=== PATIENT | male | born 1955 | race Caucasian/White ===

== ENCOUNTER 2019-08-14 12:42 | Emergency (ER) | payer SELFPAY ==
[2019-08-14 12:45] VITALS: BP 161/76; PULSE 88; RESP 17; TEMP 36.8; O2SAT 97; BMI 33.5
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
[2019-08-14] MEDS: HYDROcodone-acetaminophen 5-325 mg Tablet 1 TAB PO (13:06)
[2019-08-14 13:20] LABS: Basophils % 0.5 %; Eosinophils # 0.2 10^3/uL (0.0-0.8); Eosinophils % 3.9 %; Hematocrit 47.8 % (42.0-52.0); Hemoglobin 15.6 g/dL (11.7-16.6); Lymphocytes % 36.1 %; Mean Corpuscular HGB Conc 32.6 g/dL (30.0-36.0); Mean Corpuscular Hemoglobin 31.1 pg (28.0-34.0); Mean Corpuscular Volume 95.2 fL (80-94); Mean Platelet Volume 9.8 fL (7.4-10.4); Monocytes # 0.4 10^3/uL (0.2-0.9); Monocytes % 6.7 %; Neutrophils % 52.4 %; Nucleated Red Blood Cells % 0 %; Platelet Count 254 10^3/cmm (130-400); Red Blood Count 5.02 10^6/uL (4.1-5.3); Red Cell Distribution Width 13.1 % (12.1-15.1); White Blood Count 5.7 10^3/uL (4.0-10.0)
[2019-08-14 13:41] LABS: Blood Urea Nitrogen 15 mg/dL (8-23); Calcium 9.6 mg/dL (8.5-10.5); Carbon Dioxide 23 mmol/L (22-29); Chloride 102 mmol/L (98-107); Glucose 183 mg/dL (65-115); Osmolality Calculated 285 mOsm/kg (285-295); Sodium 137 mmol/L (136-145)
[2019-08-14 15:38] VITALS: BP 184/83; PULSE 73; RESP 17; O2SAT 95
== END 2019-08-14 15:38 | disposition home or self-care (01) ==
PROVIDERS: Emergency Provider Family Medicine; Family Provider Family Medicine; PCP Family Medicine
DX: S13.4XXA Sprain of ligaments of cervical spine, initial encounter (principal); M50.020 Cervical disc disorder with myelopathy, mid-cervical region, unspecified level; V43.53XA Car driver injured in collision with pick-up truck in traffic accident, initial encounter; F17.200 Nicotine dependence, unspecified, uncomplicated; Z98.1 Arthrodesis status; Z79.82 Long term (current) use of aspirin
CPT/HCPCS: 12345; 36415; 72125; 80048; 85025; 99281; 99283

== ENCOUNTER 2019-08-26 15:40 | Emergency (ER) | payer OTHER, SELFPAY ==
[2019-08-26 15:45] VITALS: BP 165/98; PULSE 69; RESP 18; TEMP 37.3; O2SAT 99; BMI 34.8
[2019-08-26 16:40] VITALS: BP 157/94
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
[2019-08-26 17:18] VITALS: PULSE 73; RESP 18; O2SAT 95
[2019-08-26] MEDS: ketorolac 30 mg/mL INJ IVP (18:10)
[2019-08-26] MEDS: orphenadrine 30 mg/mL Inj 2 mL 60 MG IM (18:10)
[2019-08-26 18:13] VITALS: BP 179/87; PULSE 66; RESP 20; O2SAT 94
== END 2019-08-26 18:19 | disposition home or self-care (01) ==
PROVIDERS: Emergency Provider Family Medicine; Family Provider Family Medicine; PCP Family Medicine
DX: S39.012A Strain of muscle, fascia and tendon of lower back, initial encounter (principal); Z79.82 Long term (current) use of aspirin; V89.2XXA Person injured in unspecified motor-vehicle accident, traffic, initial encounter; F17.210 Nicotine dependence, cigarettes, uncomplicated
CPT/HCPCS: 12345; 72100; 96372; 99281; 99283; J1885; J2360

== ENCOUNTER 2019-09-25 07:59 | Outpatient (CLI) | payer SELFPAY ==
--- NOTE | 2019-09-25 08:00 | MR_ITS ---
WS: [id number] MRI CERVICAL SPINE NONCONTRAST TECHNIQUE: Sagittal T1, T2 and STIR imaging. Axial T2, gradient, and fiesta imaging. CLINICAL INFORMATION: cervical pain COMPARISON: MRI September 04 2018 FINDINGS: Straightening of the normal cervical lordosis. No high-grade central canal stenosis. Cord signal is n ormal. Anterior cervical fusion C3-C7 with interbody fusion C3-C4 C5-C6 and C6-C7. C2-C3: Normal. C3-C4: Postoperative changes anterior interbody cervical fusion. Mild right and no significant left f oraminal narrowing. Mild facet arthropathy. Spinal canal is patent. C4-C5: Anterior cervical fusion. Moderate facet arthropathy. Mild bilateral bony foraminal narrowing. C5-C6: Anterior interbody cervical fusion. Osteophytic ridging. Mild left and no significant right fo raminal narrowing. Spinal canal is patent. Mild facet arthropathy. C6-C7: Anterior interbody cervical fusion. Spinal canal is patent. Mild left greater than right bianca inal narrowing. C7-T1: Anterior cervical fusion. No significant disc bulging. Mild bilateral bony foraminal narrowing . Spinal canal is patent. Retention cyst in the posterior nasopharynx. MR/MR cervical spin wo con* [id number] IMPRESSION: 1. Straightening of the normal cervical lordosis with anterior cervical fusion C3-C7 with interbody fusion C3-C4 C5-C6 and C6-C7. Hardware appears unchanged since 2019. 2. No high-grade central canal stenosis. Cord signal is normal. 3. Mild central canal stenosis C4-C5 unchanged. 4. Mild bony foraminal narrowing described above worse at right C3-4, bilatera l C4-5, and left C5-6. 5. Asymmetric moderate left facet arthropathy C4-C5 unchanged.
--- NOTE | 2019-09-25 08:45 | MR_ITS ---
WS: [id number] MRI LUMBAR SPINE NONCONTRAST TECHNIQUE: Sagittal T1, T2 and STIR imaging. Axial T1 and T2 imaging. CLINICAL INFORMATION: COMPARISON: None. FINDINGS: Mild lumbar curve. No acute compression. No high-grade central canal stenosis. Mild congenital centra l canal narrowing. L1-L2: Small right foraminal protrusion with a tiny annular fissure. Mild right foraminal narrowing w ith contact of the exiting right L1 nerve root. Left foramen is patent. Mild facet arthropathy. L2-L3: Annular bulging with mild/moderate central canal stenosis. Impingement on the traversing left L3 nerve root. Small left foraminal protrusion with mild left and no significant right foraminal narr owing. Moderate facet arthropathy. L3-L4: Mild annular bulging. Small right greater than left foraminal protrusions with mild right grea ter than left foraminal narrowing. Contact of the exiting right L3 nerve root. Mild facet arthropathy . Mild central canal stenosis. L4-L5: Mild annular bulging with narrowing of the subarticular recess bilaterally. Right foraminal pr otrusion contacts the exiting right L4 nerve root with moderate right foraminal narrowing. Mild left foraminal narrowing. Moderate facet arthropathy. L5-S1: Disc osteophyte complex eccentric to the right with encroachment traversing right S1 nerve regina t. Mild right foraminal narrowing. Moderate facet arthropathy. Spinal canal is patent. Right peripelvic renal cysts. Infrarenal abdominal aortic aneurysm measuring 3.0 x 3.0 cm MR/MR lumbar spine wo con* [id number] IMPRESSION: 1. Left pericentral protrusion L2-3 impinges the traversing left L3 nerve root . Mild to moderate central canal stenosis. Small left foraminal protrusion at t his level contacts the exiting left L2 nerve root. 2. Right foraminal protrusion L3-4 contacts the exiting right L3 nerve root w ith mild right foraminal narrowing. 3. Right foraminal protrusion L4-5 slightly impinges the exiting right L4 nerv e root. 4. Moderate facet arthropathy L3-L5. 5. Mild central canal stenosis L3-L4 and L4-L5 with impingement on the subarti cular recess L4-5. 6. Small infrarenal abdominal aortic aneurysm measuring 3.0 x 3.0 CM.
--- NOTE | 2019-09-25 11:42 | XR_ITS ---
WS: [id number] LATERAL LUMBAR SPINE: 3 view. Lateral radiographs are performed in upright neutral, flexion and extension to the patient's toleranc e. HISTORY: lumbar pain COMPARISON: 08/26/2019 L1, L2 and L3 retrolisthesis by 2 mm. With flexion and extension no significant instability. Endplate osteophytes at all levels. No fractures. Facet joint arthritis at L4-5 and L5-S1. XR/XR lumbar spine f/e only [id number] IMPRESSION: No lumbar spine instability.
--- NOTE | 2019-09-25 11:42 | XR_ITS ---
WS: [id number] LATERAL CERVICAL SPINE: 3 view. Lateral radiographs are performed in upright neutral, flexion and extension to the patient's toleranc e. HISTORY: cervical pain COMPARISON: 10/24/2018 Anterior cervical fusion at C3-4 with interbody spacer ankylosis. Anterior cervical fusion extends from C5 through C7 with interbody spacers at C5-6 and C6-7 with comp lete ankylosis. Posterior alignment is normal. No significant instability during flexion or extension. No change in p osition of the hardware. XR/XR cervical spine fl/ex [id number] IMPRESSION: Anterior cervical fusions with ankylosis across the disc spaces as above. No instability.
== END 2019-09-25 08:00 | disposition home or self-care (01) ==
LOC: RADSHAW 08:06
PROVIDERS: PCP Family Medicine; Visit Provider Specialist
DX: M51.26 Other intervertebral disc displacement, lumbar region (principal); M48.061 Spinal stenosis, lumbar region without neurogenic claudication; M47.816 Spondylosis without myelopathy or radiculopathy, lumbar region; I71.4 Abdominal aortic aneurysm, without rupture; M47.812 Spondylosis without myelopathy or radiculopathy, cervical region; M48.02 Spinal stenosis, cervical region
CPT/HCPCS: 72040; 72120; 72141; 72148

== ENCOUNTER → 2020-02-28 12:53 | Outpatient (BNVA) | payer OTHER, SELFPAY | PROVIDERS: PCP Family Medicine; Visit Provider Family Medicine | DX: Z11.59 Encounter for screening for other viral diseases (principal) | CPT/HCPCS: 87635 ==

== ENCOUNTER 2021-04-16 12:28 | Emergency (ER) | payer OTHER, MEDICARE, SELFPAY ==
[2021-04-16 13:24] VITALS: BP 130/79; PULSE 47; RESP 16; TEMP 36.5; O2SAT 95; BMI 34.8
--- NOTE | 2021-04-16 13:34 | ECG_ITS ---
[facility] Test Date: 2021-04-16 Pat Name: Shon Narayanan Department: Room: Gender: Male Fowl Blood Tester: : 1955 Requested By: Jose Carlos Clarke Order Number: [id number] Cassidy MD: Rah Carr M.D. Measurements Intervals [place] Rate: 47 P: -8 [place]: 366 QRS: 79 QRSD: 81 T: 66 QT: 447 QTc: 397 Interpretive Statements SINUS BRADYACARDIA INTERPRETATION BASED ON A DEFAULT AGE OF 40 YEARS Compared to ECG 11/11/2016 13:33:47 Sinus rhythm no longer present Ventricular premature complex(es) no longer present Electronically Signed On 04-17-2021 7:37:10 HEAD OF ART by Rah Carr M.D. [id number]
[2021-04-16 14:09] LABS: Basophils # 0.1 10^3/uL (0.0-0.1); Basophils % 0.6 %; Eosinophils # 0.3 10^3/uL (0.0-0.8); Eosinophils % 3.3 %; Hematocrit 50.9 % (42.0-52.0); Hemoglobin 16.3 g/dL (11.7-16.6); Lymphocytes # 3.3 10^3/uL (0.8-4.8); Lymphocytes % 39.4 %; Mean Corpuscular Hemoglobin 31.6 pg (28.0-34.0); Mean Corpuscular Volume 98.6 fl (80-94); Mean Platelet Volume 10.4 fL (7.4-10.4); Monocytes # 0.7 10^3/uL (0.2-0.9); Monocytes % 8.1 %; Neutrophils # 4.06 10^3/uL (1.8-7.7); Neutrophils % 48.4 %; Nucleated Red Blood Cells % 0 %; Platelet Count 213 10^3/cmm (130-400); Red Blood Count 5.16 10^6/uL (4.1-5.3); Red Cell Distribution Width 13.6 % (12.1-15.1); White Blood Count 8.4 10^3/uL (4.0-10.0)
[2021-04-16 14:30] LABS: Alanine Aminotransferase 36 U/L (0-41); Albumin Level 4.4 g/dL (3.5-5.2); Alkaline Phosphatase 62 IU/L (40-130); Anion Gap 15.6 (5-19); Aspartate Amino Transferase 31 U/L (0-40); Blood Urea Nitrogen 12 mg/dL (8-23); Calcium 8.4 mg/dL (8.5-10.5); Carbon Dioxide 23 mmol/L (22-29); Chloride 108 mmol/L (98-107); Globulin 2.9 g/dL (1.3-4.6); Glomerular Filtration Rate 96.7 mL/min (90-130); Glucose 79 mg/dL (65-115); Osmolality Calculated 293 mOsm/kg (285-295); Potassium 4.6 mmol/L (3.5-5.1); Sodium 142 mmol/L (136-145); Total Bilirubin 0.3 mg/dL (0.15-1.2); Total Protein 7.3 g/dL (6.6-8.7)
--- NOTE | 2021-04-16 15:58 | ED_ITS ---
HPI - Extremity Problem General: Chief complaint: Extremity Problem,Nontraumatic Stated complaint: POSS BLOOD CLOT RIGHT CALF Time Seen by Provider: 04/16/21 15:58 History of Present Illness: HPI Narrative: Mr Narayanan is a 66-year-old gentleman with significant past medical hypertension leg pain and also your symptoms the patient reports approximately 3 weeks ago noticing nontraumatic onset of right lower extremity discomfort. This discomfort is worse with palpation and movement but does not go with rest. He denies any injury or known similar episodes. Quality aching, intensity moderate. Course has persisted. Additionally, he has some lightheadedness and worsening shortness of breath after a change medications including increasing is he hypotensive. Lightheadedness is worse with position changes. No other changes, no other exacerbating or relieving factors identified Review of Systems General: Reports: 10 or more systems reviewed and unremarkable except in HPI and below PFSH ED PFSH: Medical History AMS (altered mental status) Carpal tunnel syndrome, bilateral Cervical disc disorder with myelopathy of mid-cervical region Current smoker Displacement of lumbar disc with radiculopathy Neck pain Surgical History H/O arthroscopy of shoulder H/O carpal tunnel repair (03/21/19) Open release of median nerve at right wrist; 03/21/2019; [facility] [place] History of cholecystectomy S/P cervical spinal fusion (09/22/16) C3-C4, C5-C6, C6-C7 ACDFF; 09/22/2016; [facility] [place] Family History Grandmother CAD (coronary artery disease) Hypertension Sister Cancer Hypertension Brother Hypertension Mother Hypertension Father Hypertension Denies family history of Diabetes Bleeding disorder Social History Smoking and tobacco status: current every day smoker Alcohol intake: former Lives independently: Yes Marital status: Current occupational status: disabled History of recent travel: No Physical Exam Narrative: EXAM NARRATIVE: GENERAL/CONSTITUTIONAL - well-appearing. No acute distress. Eyes - PERRL, no conjunctival injection ENMT - Atraumatic external nose and ears. Moist mucous membranes NECK - supple. trachea midline CARDIOVASCULAR - bradycardic rate and regular rhythm. Peripheral pulses 2+ and equal RESPIRATORY -clear to auscultation bilaterally. No retractions or accessory muscle use. ABDOMEN/GI - Nontender/Nondistended. No tenderness to percussion or evidence of peritonitis MSK - R calf ttp superiolaterally, ttp on R lateral knee, no obvious deformity SKIN - Warm, Dry NEURO - alert and appropriately oriented. Moves all extremities equally. Course ED course: - Patient was seen and evaluated by me at bedside - Patient placed on cardiac monitors, IV access obtained - Initial evaluation notable for exam as above. Bradycardia with okay blood pressure - Labs notable for no significant electrolyte abnormalities to explain symptoms - Imaging notable for no DVT or other cause of leg pain - Upon serial reexamination after treatment the patient was similar - Based on patient history, evaluation, labs, and imaging as interpreted the most likely cause of the patient's condition is leg pain of unclear etiology and bradycardia resulting in mild symptoms associated with medications. - The results of ED evaluation were discussed with the patient including modification to prescriptions and/or symptomatic cares (if applicable) including appropriate and responsible use, followup plan, and return precautions. The patient verbalized understanding and felt safe for discharge. - Patient discharged in satisfactory condition. Vital Signs: Vital signs: Vital Signs Temperature 97.7 F 04/16/21 13:24 Pulse Rate 47 L 04/16/21 13:24 Respiratory Rate 16 04/16/21 13:24 Blood Pressure 130/79 04/16/21 13:24 Pulse Oximetry 95 04/16/21 13:24 MDM - Extremity (Nontraumatic) Medical Records: Attestation: I reviewed the patient's medical records. Lab Data: Attestation: I reviewed the patient's lab results. Labs: Lab Results 04/16/21 04/16/21 04/16/21 14:00 14:00 14:00 WBC 8.4 10^3/uL 10^3/ uL (4.0-10.0) RBC 5.16 10^6/uL 10^6 /uL (4.1-5.3) Hgb 16.3 g/dL g/dL (11.7-16.6) Hct 50.9 % % (42.0-52.0) MCV 98.6 fl H fl (80-94) MCH 31.6 pg pg (28.0-34.0) MCHC 32.0 g/dL g/dL (30.0-36.0) RDW 13.6 % % (12.1-15.1) Plt Count 213 10^3/cmm 10^3 /cmm (130-400) MPV 10.4 fL fL (7.4-10.4) Neut % (Auto) 48.4 % % Lymph % (Auto) 39.4 % % [place] % (Auto) 8.1 % % Eos % (Auto) 3.3 % % Baso % (Auto) 0.6 % % Neut # (Auto) 4.06 10^3/uL 10^3 /uL (1.8-7.7) Lymph # (Auto) 3.3 10^3/uL 10^3/ uL (0.8-4.8) [place] # (Auto) 0.7 10^3/uL 10^3/ uL (0.2-0.9) Eos # (Auto) 0.3 10^3/uL 10^3/ uL (0.0-0.8) Baso # (Auto) 0.1 10^3/uL 10^3/ uL (0.0-0.1) Nucleated RBC % (a uto) 0 % % Nucleated RBCs # 0.0 /100WBC /100W BC Sodium 142 mmol/L mmol/L (136-145) Potassium 4.6 mmol/L mmol/L (3.5-5.1) Chloride 108 mmol/L H mmol /L (98-107) Carbon Dioxide 23 mmol/L mmol/L (22-29) Anion Gap 15.6 (5-19) BUN 12 mg/dL mg/dL (8-23) Creatinine 0.8 mg/dL mg/dL (0.7-1.2) GFR Calculation 96.7 mL/min mL/mi n (90-130) Glucose 79 mg/dL mg/dL (65-115) Calculated Osmolal ity 293 mOsm/kg mOsm/ kg (285-295) Calcium 8.4 mg/dL L mg/dL (8.5-10.5) Total Bilirubin 0.3 mg/dL mg/dL (0.15-1.2) AST 31 U/L U/L (0-40) ALT 36 U/L U/L (0-41) Alkaline Phosphata se 62 IU/L IU/L (40-130) Troponin T Baselin e 16 ng/L H ng/L (0-15) Troponin T 120 Min srinath Delta Troponin T Total Protein 7.3 g/dL g/dL (6.6-8.7) Albumin 4.4 g/dL g/dL (3.5-5.2) Globulin 2.9 g/dL g/dL (1.3-4.6) 04/16/21 16:20 WBC RBC Hgb Hct MCV MCH MCHC RDW Plt Count MPV Neut % (Auto) Lymph % (Auto) [place] % (Auto) Eos % (Auto) Baso % (Auto) Neut # (Auto) Lymph # (Auto) [place] # (Auto) Eos # (Auto) Baso # (Auto) Nucleated RBC % (a uto) Nucleated RBCs # Sodium Potassium Chloride Carbon Dioxide Anion Gap BUN Creatinine GFR Calculation Glucose Calculated Osmolal ity Calcium Total Bilirubin AST ALT Alkaline Phosphata se Troponin T Baselin e Troponin T 120 Min srinath 16.45 ng/L H ng/L (0-15) Delta Troponin T 0.45 ABS# ABS# (0-10) Total Protein Albumin Globulin EKG Data^: EKG 1: Attestation: I personally reviewed and interpreted this EKG as follows: EKG interpretation date: 04/16/21 EKG interpretation time: 17:26 Interpretation: Twelve-lead EKG shows a regular rhythm at a rate of 47. [place] interval 187. QRS duration 85. QTc 432. normal [place]. Interpretation: sinus Rhythm. bradycardia. EKG 2: Attestation: I personally reviewed and interpreted this EKG as follows: EKG interpretation date: 04/16/21 EKG interpretation time: 13:34 Interpretation: Twelve-lead EKG shows a regular rhythm at a rate of 47. [place] interval normal. QRS duration 81. QTc 409. normal [place]. . Interpretation: sinus Rhythm. bradycardia. Discharge Plan Discharge Patient Disposition: Home Clinical Impression: Bradycardia, Shortness of breath, Leg pain Condition: Stable Prescriptions: No Action diazepam [Valium] 2 mg tablet 1 mg PO BID PRN (Reason: Anxiety) RF: 0 aspirin [Adult Low Dose Aspirin] 81 mg tablet,delayed release (DR/EC) 81 mg PO DAILY RF: 0 metoprolol tartrate 50 mg Tablet 25 mg PO DAILY MDD see pharmacy comment RF: 0 cyclobenzaprine 10 mg Tablet 10 mg PO TID PRN (Reason: MUSCLE SPASMS) RF: 0 sildenafil 100 mg Tablet 100 mg PO DAILY PRN (Reason: ERECTILE DISFUNCTION) RF: 0 mometasone 200 mcg/actuation Hfa Aerosol Inhaler 2 puff INHALATION BID PRN (Reason: Shortness Of Breath) RF: 0 Discharge Orders: Discharge ED (Routine); Ordered 04/16/21 Ordered By: Felice Parra Referrals: Luz Maria Stephenson MD [Primary Care Provider] - Discharge Diet: Usual diet Discharge Activity: Resume usual activity Patient Instructions: Bradycardia (ED), Leg Pain (ED), Shortness of Breath (ED) Activity Restrictions/Additional Instructions: Thank you for visiting the emergency department. You were seen and evaluated for leg pain as well as shortness of breath associated with low heart rate. No evidence of deep vein thrombosis was found and no fracture was identified on x- ray. The exact cause of your shortness of breath and low heart rate is unclear though likely related to your medication. Please stop taking your metoprolol until you follow-up with your primary care provider. Return to the emergency department for worsening symptoms, uncontrolled blood pressure as discussed, or anything else that you are concerned about and feel needs emergency department evaluation. Coding Level of Care Code ED Hasher Operator for Mook Pardo
--- NOTE | 2021-04-16 16:22 | XRR_ITS ---
PROCEDURE INFORMATION: Exam: XR Right Knee Exam date and time: 04/16/2021 4:22 PM Age: 66 years old Clinical indication: Patient HX: Right knee pain TECHNIQUE: Imaging protocol: XR Right knee. Views: 3 views. COMPARISON: [facility] Ankle RIGHT 3 views 06/11/2015 10:18 AM FINDINGS: Bones/joints: Mild medial compartment osteoarthritis. Soft tissues: Normal. XR/XR knee RT 3V* [id number] IMPRESSION: Mild medial compartment osteoarthritis.
--- NOTE | 2021-04-16 16:22 | XRR_ITS ---
PROCEDURE INFORMATION: Exam: XR Chest Exam date and time: 04/16/2021 4:22 PM Age: 66 years old Clinical indication: Sternal or substernal pain; Additional info: Chest pain TECHNIQUE: Imaging protocol: XR of the chest. Views: 1 view. COMPARISON: CT Chest[facility]en[facility] 07/14/2014 11:15 AM FINDINGS: Lungs: Bibasilar atelectasis versus minimal infiltrate. Pleural spaces: Unremarkable. No pleural effusion. No pneumothorax. Heart/Mediastinum: Cardiomegaly. Bones/joints: Unremarkable. XR/XR chest 1V portable [id number] IMPRESSION: 1. Cardiomegaly. 2. Bibasilar atelectasis versus minimal infiltrate.
--- NOTE | 2021-04-16 16:22 | USR_ITS ---
PROCEDURE INFORMATION: Exam: US Duplex Right Lower Extremity Veins, Limited Exam date and time: 04/16/2021 4:22 PM Age: 66 years old Clinical indication: Pain; Leg, lower; Right; Additional info: Calf pain, swelling, R/O dvt TECHNIQUE: Imaging protocol: Real-time Duplex ultrasound of the Right Lower Extremity with 2-D fay scale, color Doppler flow and spectral waveform analysis with image documentation. Limited exam was focused on the right lower extremity veins. COMPARISON[place] [facility] 09/23/[place] 4:16 PM FINDINGS: Right deep veins: Unremarkable. The common femoral, femoral, proximal profunda femoral and popliteal veins are patent without thrombus. Normal Doppler waveforms. Normal compressibility and/or augmentation response. Right superficial veins: Unremarkable. Saphenofemoral junction is patent without thrombus. Soft tissues: Unremarkable. US/[place] [id number] IMPRESSION: No evidence of deep vein thrombosis.
[2021-04-16 16:45] LABS: Troponin(5th) Baseline 16 ng/L (0-15)
[2021-04-16 16:57] LABS: Troponin 5 2HR 16.45 ng/L (0-15); Troponin 5 2HR Delta 0.45 ABS# (0-10)
--- NOTE | 2021-04-16 17:59 | ECG_ITS ---
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 Measurements Intervals [place] Rate: 47 P: 59 AK: 187 QRS: 79 QRSD: 85 T: 68 QT: 471 QTc: 417 Interpretive Statements SINUS BRADYCARDIA Compared to ECG 04/16/2021 13:30:19 Atrial-paced complex(es) or rhythm no longer present Electronically Signed On 04-17-2021 7:44:56 MEDICATION AIDE by Rah Carr M.D. [id number]
--- NOTE | 2021-04-27 16:30 | PC.SOCIAL ---
Addendum entered by Heather Arias 06/10/21 16:42: Patient had a follow up appointment scheduled for 05.11.[address] Matias at [facility] - patient did attend appointment. Original Note: Referral from ED provider dr Parra to set up PCP. Talked with patient and he will be out of town until after the first. he would like to be set up with Dr Matias for afternoon appt. This was scheduled for 05/10/2021 at 1pm and notified his fiance leeroy who requests the date and time be text to their phone which was provided along with number to call should he need to reschedule. Spoke with Sharon to schedule appt.
== END 2021-04-16 18:31 | disposition home or self-care (01) ==
PROVIDERS: Emergency Provider Emergency Medicine; PCP Family Medicine
DX: M79.604 Pain in right leg (principal); R00.1 Bradycardia, unspecified; R06.02 Shortness of breath; Z79.82 Long term (current) use of aspirin; F17.210 Nicotine dependence, cigarettes, uncomplicated
CPT/HCPCS: 71045; 73562; 80053; 84484; 85025; 93005; 93971; 99283